=== PATIENT | female | born 1990 | race African-American/Black ===

== ENCOUNTER 2023-11-04 10:06 | Emergency (ER) | payer OTHER ==
[~2023-11-04] VITALS: Ht 175.3 cm; Wt 96.8 kg
[2023-11-04 13:13] VITALS: BP 128/73; TEMP 97; O2SAT 98
[2023-11-04] MEDS ORDERED: ACETAMINOPHEN 500 MG TAB PO ONE (13:25)
[2023-11-04] MEDS ORDERED: diazePAM 5MG TABLET PO ONE (13:25)
[2023-11-04] MEDS ORDERED: LIDOCAINE 5% (LIDODERM) PATCH TD ONE (13:25)
== END 2023-11-04 15:45 | disposition home or self-care (01) ==
LOC: M ED 10:06
DX: M62.830 Muscle spasm of back (principal); Z87.891 Personal history of nicotine dependence; Z88.6 Allergy status to analgesic agent

== ENCOUNTER 2024-01-21 10:19 | Emergency (ER) | payer OTHER ==
[~2024-01-21] VITALS: Ht 175.3 cm; Wt 103.9 kg
[2024-01-21 10:20] VITALS: BP 93/62; TEMP 98.9; O2SAT 98
[2024-01-21] MEDS ORDERED: CETI-24 (10:40)
[2024-01-21 11:18] LABS: EOS # 0.2 10^3/uL (0.0-0.5); EOS % 4.1 % (0.0-3.0); HEMATOCRIT 40.5 % (36.0-47.0); HEMOGLOBIN 13.8 g/dl (12.0-15.5); LYMPH # 2.1 10^3/uL (1.5-5.0); LYMPH % 50.7 % (24.0-44.0); MEAN CORPUSCULAR HEMOGLOBIN 29.9 pg (27.0-33.0); MEAN CORPUSCULAR HGB CONC 34.1 g/dl (32.0-36.5); MEAN CORPUSCULAR VOLUME 87.9 fl (80.0-96.0); MONO # 0.3 10^3/uL (0.0-0.8); MONO % 7.3 % (2.0-8.0); NEUTROPHILS # 1.5 10^3/uL (1.5-8.5); NEUTROPHILS % 36.7 % (36.0-66.0); PLATELET COUNT, AUTOMATED 201 10^3/uL (150-450); RED BLOOD COUNT 4.61 10^6/uL (4.00-5.40); WHITE BLOOD COUNT 4.1 10^3/uL (4.0-10.0)
[2024-01-21 11:31] LABS: LIPASE 24 U/L (12-53)
[2024-01-21 11:32] LABS: AMYLASE 97 U/L (30-118)
[2024-01-21 11:33] LABS: ALBUMIN 3.6 G/DL (3.2-5.2); ALKALINE PHOSPHATASE 40 U/L (46-116); ALT/SGPT 13 U/L (7.0-40); AST/SGOT 9 U/L (<34); BILIRUBIN,DIRECT 0.1 MG/DL (<0.4); BILIRUBIN,TOTAL 0.4 MG/DL (0.3-1.2); BLOOD UREA NITROGEN 12 MG/DL (9-23); CALCIUM LEVEL 8.4 MG/DL (8.5-10.1); CARBON DIOXIDE LEVEL 26 MMOL/L (20-31); CHLORIDE LEVEL 108 MMOL/L (98-107); CREATININE FOR GFR 0.82 MG/DL (0.55-1.30); GLOMERULAR FILTRATION RATE > 60.0 (>60); GLUCOSE, FASTING 103 MG/DL (60-100); POTASSIUM SERUM 4.2 MMOL/L (3.5-5.1); SODIUM LEVEL 139 MMOL/L (136-145); TOTAL PROTEIN 6.1 G/DL (5.7-8.2)
[2024-01-21 12:29] LABS: GC DNA AMPLIFICATION NEGATIVE (NEGATIVE)
== END 2024-01-21 13:04 | disposition left against medical advice (07) ==
LOC: M ED 10:19
DX: Z53.21 Procedure and treatment not carried out due to patient leaving prior to being seen by health care provider (principal)

== ENCOUNTER 2024-01-22 05:30 | Emergency (ER) | payer OTHER ==
[~2024-01-22] VITALS: Ht 175.3 cm; Wt 105.5 kg
[~2024-01-22 05:30] MED LIST: CETI-24
[2024-01-22] MEDS: MAALOX 30 ML SUSP *UDC PO ONE (07:16)
[2024-01-22 07:48] LABS: BASO # 0.1 10^3/uL (0.0-0.2); BASO % 1.2 % (0.0-1.0); EOS # 0.1 10^3/uL (0.0-0.5); EOS % 2.5 % (0.0-3.0); HEMATOCRIT 37.2 % (36.0-47.0); HEMOGLOBIN 12.9 g/dl (12.0-15.5); LYMPH # 2.6 10^3/uL (1.5-5.0); LYMPH % 50.3 % (24.0-44.0); MEAN CORPUSCULAR HEMOGLOBIN 30.5 pg (27.0-33.0); MEAN CORPUSCULAR HGB CONC 34.7 g/dl (32.0-36.5); MEAN CORPUSCULAR VOLUME 87.9 fl (80.0-96.0); MONO # 0.4 10^3/uL (0.0-0.8); NEUTROPHILS % 38.8 % (36.0-66.0); PLATELET COUNT, AUTOMATED 189 10^3/uL (150-450); RED BLOOD COUNT 4.23 10^6/uL (4.00-5.40); WHITE BLOOD COUNT 5.1 10^3/uL (4.0-10.0)
[2024-01-22] MEDS ORDERED: ISOVUE-370 76% 100ML VIAL As Ordered ONE (07:58)
[2024-01-22 08:13] LABS: ALBUMIN 3.3 G/DL (3.2-5.2); BILIRUBIN,DIRECT 0.1 MG/DL (<0.4); BILIRUBIN,TOTAL 0.3 MG/DL (0.3-1.2); TOTAL PROTEIN 5.9 G/DL (5.7-8.2)
[2024-01-22 09:23] VITALS: BP 109/55; TEMP 96.9; O2SAT 100
== END 2024-01-22 09:39 | disposition home or self-care (01) ==
LOC: M ED 05:30
DX: R10.12 Left upper quadrant pain (principal); R10.32 Left lower quadrant pain; N83.209 Unspecified ovarian cyst, unspecified side; Z88.6 Allergy status to analgesic agent
CPT/HCPCS: 74177; 80047; 80076; 83690; 84702; 85025; 99284; Q9967

== ENCOUNTER 2025-01-29 01:52 | Emergency (ER) | payer OTHER ==
[~2025-01-29] VITALS: Ht 175.3 cm; Wt 113.6 kg
[2025-01-29] MEDS ORDERED: NORG1TAB38 (01:57)
[2025-01-29] MEDS ORDERED: VITA100093 (01:57)
[2025-01-29] MEDS ORDERED: FLUC10TA PO (01:57)
[2025-01-29 07:02] LABS: BASO # 0.1 10^3/uL (0.0-0.2); BASO % 0.9 % (0.0-1.0); EOS # 0.1 10^3/uL (0.0-0.5); EOS % 1.6 % (0.0-3.0); HEMATOCRIT 41.9 % (36.0-47.0); HEMOGLOBIN 14.1 g/dl (12.0-15.5); LYMPH # 1.4 10^3/uL (1.5-5.0); LYMPH % 25.7 % (24.0-44.0); MEAN CORPUSCULAR HEMOGLOBIN 29.4 pg (27.0-33.0); MEAN CORPUSCULAR HGB CONC 33.7 g/dl (32.0-36.5); MEAN CORPUSCULAR VOLUME 87.3 fl (80.0-96.0); MONO # 0.6 10^3/uL (0.0-0.8); MONO % 10.8 % (2.0-8.0); NEUTROPHILS # 3.3 10^3/uL (1.5-8.5); NEUTROPHILS % 60.8 % (36.0-66.0); PLATELET COUNT, AUTOMATED 166 10^3/uL (150-450); WHITE BLOOD COUNT 5.5 10^3/uL (4.0-10.0)
[2025-01-29 07:32] LABS: MONO REFLEX EBV COMP NEGATIVE (NEGATIVE)
[2025-01-29 08:21] VITALS: BP 114/72; TEMP 97.8; O2SAT 99
[2025-01-31 16:02] LABS: EBV AB TO NUCLEAR ANTIGEN > 600.00 U/mL (<18.00); EBV VIRAL CAPSID AG IGM < 36.00 U/mL (<36.00)
== END 2025-01-29 08:22 | disposition home or self-care (01) ==
LOC: M ED 01:52
DX: J02.9 Acute pharyngitis, unspecified (principal); Z88.6 Allergy status to analgesic agent; F17.200 Nicotine dependence, unspecified, uncomplicated; Z90.89 Acquired absence of other organs

== ENCOUNTER 2025-09-22 15:31 | Emergency (ER) | payer OTHER ==
[~2025-09-22] VITALS: Ht 175.3 cm; Wt 117.6 kg
[~2025-09-22 15:31] MED LIST changes: +FLUC10TA PO; +NORG1TAB38; +VITA100093
[2025-09-22] MEDS: PROPARACAINE 0.5% OPHTH SOL 15ML OD ONE (18:05)
[2025-09-22] MEDS: FLUORESCEIN OPHTH 1 MG STRIP OD ONE (18:35)
[2025-09-22] MEDS: NS 500 ML IV ONE (19:01)
[2025-09-22] MEDS: diphenhydrAMINE 50 MG/ML VIAL IV STA (19:04)
[2025-09-22] MEDS: KETOROLAC 30 MG/ML 1 ML VIAL IV ONE (19:07)
[2025-09-22 19:11] LABS: BASO # 0.0 10^3/uL (0.0-0.2); BASO % 0.5 % (0.0-1.0); EOS # 0.1 10^3/uL (0.0-0.5); EOS % 1.5 % (0.0-3.0); LYMPH # 2.5 10^3/uL (1.5-5.0); LYMPH % 41.6 % (24.0-44.0); MONO # 0.4 10^3/uL (0.0-0.8); MONO % 7.1 % (2.0-8.0); NEUTROPHILS # 3.0 10^3/uL (1.5-8.5); NEUTROPHILS % 49.1 % (36.0-66.0); PLATELET COUNT, AUTOMATED 172 10^3/uL (150-450)
[2025-09-22 19:32] LABS: ALT/SGPT 18 U/L (7.0-40); AST/SGOT 20 U/L (<34); C REACTIVE PROTEIN QUANTITATIV < 0.50 MG/DL (<1.0); CALCIUM LEVEL 8.4 MG/DL (8.5-10.1); CARBON DIOXIDE LEVEL 25 MMOL/L (20-31); CHLORIDE LEVEL 106 MMOL/L (98-107); CREATININE FOR GFR 0.73 MG/DL (0.55-1.30); GLOMERULAR FILTRATION RATE > 90.0 (>60); POTASSIUM SERUM 4.4 MMOL/L (3.5-5.1); SODIUM LEVEL 139 MMOL/L (136-145)
[2025-09-22] MEDS ORDERED: PRED20TA PO (20:53)
[2025-09-22 21:02] VITALS: BP 111/57; TEMP 96.7; O2SAT 100
== END 2025-09-22 21:11 | disposition home or self-care (01) ==
LOC: M ED 15:31
DX: G43.909 Migraine, unspecified, not intractable, without status migrainosus (principal); Z79.3 Long term (current) use of hormonal contraceptives; Z79.899 Other long term (current) drug therapy; Z88.6 Allergy status to analgesic agent
CPT/HCPCS: 70450; 80053; 85025; 85652; 86140; 96361; 96374; 96375; 99284; J1100; J1200; J1885; J2765